=== PATIENT | female | born 1930 | race Caucasian/White ===

== ENCOUNTER 2019-01-03 07:11 | Emergency (ER) | payer SELFPAY ==
[2019-01-03 07:49] VITALS: BP 140/73
--- NOTE | 2019-01-03 08:21 | Emergency Department Report ---
ED Back Pain/Injury HPI - General Chief Complaint: Back Pain/Injury Stated Complaint: BACK PAIN Time Seen by Provider: 01/03/19 08:13 Source: family, EMS Limitations: Language Barrier - History of Present Illness Initial Comments: 88-year-old female presents to the emergency room for back pain that started yesterday. Patient reports that the pain has gotten worse in the last 3-4 hours today. Patient denies any injuries. She has taken no pain medication. Patient reports that the pain radiates down her left leg. It was reported the patient took tramadol about 12 AM last night. Patient denies any falls or dysuria urinary incontinence or bowel incontinence. She reports that the pain is intermittent and sharp and worse with movement. She reports that is better now. She denies any nausea vomiting. She has no past medical history. She is followed by Dr. Riojas. Next appointment is March 03. MD Complaint: back pain Onset/Timin Similar Symptoms Previously: No Radiation: left leg Quality: sharp Consistency: intermittent Worsens With: movement Associated Symptoms: denies other symptoms Treatments Prior to Arrival: prescription analgesics - Related Data Home Medications Medication Instructions Recorded Confirmed Last Taken Aspirin [Aspirin BABY CHEW TAB] 81 mg PO QDAY 01/03/19 01/03/19 Unknown Cyproheptadine 4 mg PO BID 01/03/19 01/03/19 Unknown Previous Rx's Medication Instructions Recorded Last Taken Type Meloxicam [Mobic] 7.5 mg PO QDAY #15 tablet 01/03/19 Unknown Rx Allergies Allergy/AdvReac Type Severity Reaction Status Date / Time No Known Allergies Allergy Unverified 01/03/19 08:24 ED Review of Systems ROS: Stated complaint: BACK PAIN Other details as noted in HPI Comment: All other systems reviewed and negative ED Past Medical Hx - Past Medical History Previous Medical History?: No - Surgical History Past Surgical History?: No - Social History Smoking Status: Never Smoker Substance Use Type: None - Medications Home Medications: Home Medications Medication Instructions Recorded Confirmed Last Taken Type Aspirin [Aspirin BABY CHEW TAB] 81 mg PO QDAY 01/03/19 01/03/19 Unknown History Cyproheptadine 4 mg PO BID 01/03/19 01/03/19 Unknown History Meloxicam [Mobic] 7.5 mg PO QDAY #15 tablet 01/03/19 Unknown Rx ED Physical Exam - General Limitations: Language Barrier General appearance: alert, in no apparent distress - Head Head exam: Present: atraumatic, normocephalic - Eye Eye exam: Present: normal appearance - ENT ENT exam: Present: mucous membranes moist - Neck Neck exam: Present: normal inspection - Respiratory Respiratory exam: Present: normal lung sounds bilaterally. Absent: respiratory distress - Cardiovascular Cardiovascular Exam: Present: regular rate, normal rhythm. Absent: systolic murmur, diastolic murmur, rubs, gallop - GI/Abdominal GI/Abdominal exam: Present: soft, normal bowel sounds. Absent: distended - Expanded Back Exam Expanded Back exam: Sciatic Notch Tenderness: Left, Positive Straight Leg Raise: Left - Neurological Exam Neurological exam: Present: alert, oriented X3 - Psychiatric Psychiatric exam: Present: normal affect, normal mood - Skin Skin exam: Present: warm, dry, intact, normal color. Absent: rash ED Course Vital Signs 01/03/19 07:41 Temperature 98.5 F Pulse Rate 74 Respiratory 16 Rate Blood Pressure 140/73 O2 Sat by Pulse 95 Oximetry ED Medical Decision Making - Radiology Data Radiology results: report reviewed Patient: IRAJ LOPEZ MR#: [id number] : 1930 Acct:[id number] Age/Sex: 88 / F ADM Date: 01/03/19 Loc: ED Attending Dr: Ordering Physician: BIJAN BIRMINGHAM Date of Service: 01/03/19 Procedure(s): XR spine lumbosacral 2-3V Accession Number(s): [id number] cc: BIJAN BIRMINGHAM Fluoro Time In Minutes: LUMBAR SPINE 3 VIEWS INDICATION / CLINICAL INFORMATION: lower back pain. COMPARISON: None available. FINDINGS: VERTEBRAE: No fracture. Grade 1 anterolisthesis of L4 on L5 measuring 4 mm. DISC SPACES:Moderate discogenic degenerative disease L4-S1. Mild discogenic degenerative disease L1-4. FACET JOINTS:No significant abnormality. ADDITIONAL FINDINGS: Osteopenia IMPRESSION: 1. No significant abnormality. Signer Name: Hunter Thomas MD Signed: 01/03/2019 8:59 AM Workstation Name: [id number] Transcribed By: TL Dictated By: Hunter Thomas MD Electronically Authenticated By: Hunter Thomas MD Signed Date/Time: 01/03/19858 DD/ 7 TD/TT: - Medical Decision Making 88-year-old female presents to the emergency room for back pain that started yesterday. Patient reports that the pain has gotten worse in the last 3-4 hours today. Patient denies any injuries. She has taken no pain medication. Patient reports that the pain radiates down her left leg. It was reported the patient took tramadol about 12 AM last night. Patient denies any falls or dysuria urinary incontinence or bowel incontinence. She reports that the pain is intermittent and sharp and worse with movement. She reports that is better now. She denies any nausea vomiting. She has no past medical history. She is followed by Dr. Riojas. Next appointment is March 03. X-ray of lumbar sacral has been ordered. Critical care attestation.: If time is entered above; I have spent that time in minutes in the direct care of this critically ill patient, excluding procedure time. ED Disposition Clinical Impression: Lumbar back pain with radiculopathy affecting left lower extremity Disposition: DC-01 TO HOME OR SELFCARE Is pt being admited?: No Does the pt Need Aspirin: No Condition: Stable Instructions: Lumbar Radiculopathy (ED) Additional Instructions: Take pain medication as needed. Follow-up which her primary care provider if her symptoms persist or gets worse. Her x-ray of her back shows no acute abnormalities. Prescriptions: Meloxicam [Mobic] 7.5 mg PO QDAY #15 tablet Referrals: JARROD CALDERÓN MD [Staff Physician] - 3-5 Days
--- NOTE | 2019-01-03 09:03 | XRay Report ---
LUMBAR SPINE 3 VIEWS INDICATION / CLINICAL INFORMATION: lower back pain. COMPARISON: None available. FINDINGS: VERTEBRAE: No fracture. Grade 1 anterolisthesis of L4 on L5 measuring 4 mm. DISC SPACES:Moderate discogenic degenerative disease L4-S1. Mild discogenic degenerative disease L1-4 . FACET JOINTS:No significant abnormality. ADDITIONAL FINDINGS: Osteopenia IMPRESSION: 1. No significant abnormality. Signer Name: Hunter Thomas MD Signed: 01/03/2019 8:59 AM Workstation Name: [email or web address]
== END 2019-01-03 09:51 | disposition home or self-care (01) ==
LOC: ED 07:11
DX: M54.16 Radiculopathy, lumbar region (principal)
CPT/HCPCS: 72100